=== PATIENT | female | born 1940 | race Caucasian/White ===

== ENCOUNTER → 2016-06-08 | Outpatient (CLI) | payer OTHER, MEDICARE | END | disposition home or self-care (01) | LOC: FIMAGING 15:38 | PROVIDERS: ATTEND Orthopaedic Surgery Sports Medicine | DX: S43.421D Sprain of right rotator cuff capsule, subsequent encounter (principal); X58.XXXD Exposure to other specified factors, subsequent encounter; M75.21 Bicipital tendinitis, right shoulder ==

== ENCOUNTER → 2016-07-05 | Outpatient (CLI) | payer OTHER, MEDICARE | LOC: FIMAGING 13:29 | PROVIDERS: ATTEND Internal Medicine | DX: Z13.820 Encounter for screening for osteoporosis (principal); N95.9 Unspecified menopausal and perimenopausal disorder ==

== ENCOUNTER → 2016-07-18 | Outpatient (CLI) | payer OTHER, MEDICARE | LOC: FIMAGING 13:14 | PROVIDERS: ATTEND Physician Assistant | DX: Z98.1 Arthrodesis status (principal) ==

== ENCOUNTER → 2016-08-16 | Outpatient (CLI) | payer OTHER, MEDICARE | LOC: FIMAGING 16:33 | PROVIDERS: ATTEND Internal Medicine | DX: Z01.818 Encounter for other preprocedural examination (principal) ==

== ENCOUNTER → 2017-04-13 | Outpatient (CLI) | payer OTHER, MEDICARE | LOC: FIMAGING 09:58 | PROVIDERS: ATTEND Internal Medicine | DX: K76.0 Fatty (change of) liver, not elsewhere classified (principal); K42.9 Umbilical hernia without obstruction or gangrene; Z90.49 Acquired absence of other specified parts of digestive tract ==

== ENCOUNTER → 2017-05-21 | Outpatient (CLI) | payer OTHER, MEDICARE | LOC: FIMAGING 08:52 | PROVIDERS: ATTEND Physician Assistant | DX: Z09 Encounter for follow-up examination after completed treatment for conditions other than malignant neoplasm (principal); Z98.1 Arthrodesis status ==

== ENCOUNTER 2017-08-09 15:06 | Inpatient (IN) | payer OTHER, MEDICARE ==
[2017-08-09] MEDS ORDERED: LIDOCAINE 4%/MENTHOL 1% PATCH TD ONE (15:31)
[2017-08-09] MEDS ORDERED: OXYCODONE/APAP 5/325 TAB ONE (16:11)
[2017-08-09] MEDS ORDERED: OXYCODONE/APAP 5/325 TAB PO ONE (16:12)
--- NOTE | 2017-08-09 16:23 | EDPHY ---
H & P Stated Complaint: chronic back pain Time Seen by Provider: 08/09/17 15:13 HPI/ROS: CHIEF COMPLAINT: Acute exacerbation of mild chronic back pain HISTORY OF PRESENT ILLNESS: The patient presents to the ED with a 2-3 ED history of lumbar pain. The patient denies any acute numbness or weakness. She denies any history of fall, trauma or cancer. The patient has remote history of back surgery in 1995. The patient denies any abdominal pain, vomiting or diarrhea. She denies any additional acute medical complaints. The patient reports her pain is worsened with movement and palpation. REVIEW OF SYSTEMS: A comprehensive 10 point review of systems is otherwise negative aside from elements mentioned in the history of present illness. Source: Patient Exam Limitations: No limitations - Personal History Current Tetanus/Diphtheria Vaccine: Unsure Current Tetanus Diphtheria and Acellular Pertussis (TDAP): Unsure Tetanus Vaccine Date: 2006 - Medical/Surgical History Hx Asthma: No Hx Chronic Respiratory Disease: No Hx Diabetes: Yes Hx Cardiac Disease: No Hx Renal Disease: No Hx Cirrhosis: No Hx Alcoholism: No Hx HIV/AIDS: No Hx Splenectomy or Spleen Trauma: No Other PMH: HTN, type II diabetes; hx appy, hysterectomy, meningitis; L foot sx; vineet; - Social History Smoking Status: Former smoker - Physical Exam Exam: General Appearance: Alert, no distress Eyes: Pupils equal and round no pallor or injection ENT, Mouth: Mucous membranes moist Respiratory: There are no retractions, lungs are clear to auscultation Cardiovascular: Regular rate and rhythm Gastrointestinal: Abdomen is soft and nontender, no masses, bowel sounds normal Neurological: 5/5 strength all 4 extremities, sensation intact to light touch, symmetric reflexes Skin: Warm and dry, no rashes Musculoskeletal: Tenderness to palpation along the lumbar paraspinal musculature Extremities: symmetrical, full range of motion Psychiatric: Patient is oriented X 3, there is no agitation Constitutional: Initial Vital Signs Temperature (C) 36.8 C 08/09/17 15:10 Heart Rate 68 08/09/17 15:10 Respiratory Rate 16 08/09/17 15:10 Blood Pressure 152/71 H 08/09/17 15:10 O2 Sat (%) 94 08/09/17 15:10 O2 Delivery Mode Room Air Allergies/Adverse Reactions: Penicillins Allergy (Intermediate, Verified 05/12/15 10:40) Other-Enter Comments Home Medications: Medication Instructions Recorded Calcium Carb W/Vit D [Calcium Carb 500 mg PO BID 04/12/14 W/Vit D 500/200 (*)] Citalopram [CeleXA 20 MG] 20 mg PO DAILY 04/12/14 Hydrochlorothiazide [HCTZ (*)] 12.5 mg PO DAILY 04/12/14 Magnesium Oxide [Magnesium Oxide 200 mg PO DAILY 04/12/14 400 mg (*)] Omeprazole [Prilosec 20 mg] 20 mg PO DAILY 04/12/14 Simvastatin [Zocor 20 mg] 40 mg PO DAILY18 04/12/14 Vitamin B Complex [B Complex] 1 each PO DAILY 04/12/14 glipiZIDE [Glucotrol 5 mg] 10 mg PO BID@,18 04/12/14 metFORMIN HCL [Glucophage 500 mg 250 mg PO BIDMEAL 05/06/15 (*)] HYDROcodone/APAP 10/325 [[place] 1 tab PO Q6 PRN #50 tab 05/20/15 10/325 (*)] Methocarbamol [Robaxin 750 mg (*)] 750 mg PO QID PRN #50 tab 05/20/15 Sennosides/Docusate Sodium 1 tab PO BID #30 tab 05/20/15 [Senokot-S] Lidocaine [Lidoderm] 1 each TP AD PRN #15 adh..patch 08/09/17 oxyCODONE/APAP 5/325 [Percocet 1 - 2 tab PO Q6-8PRN PRN #20 tab 08/09/17 5/325 (RX)] Medical Decision Making - Diagnostics Imaging Results: Imaging Impressions Lumbar Spine X-Ray 08/09/17 15:33 Impression: Progressive degenerative change at the L4-L5 disk space since March 2015. Lumbar Spine MRI 08/09/17 17:04 Impression: 1. Transitional level at S1-S2 as described above. 2. L4-L5: Moderate to severe central canal stenosis and severe left lateral recess stenosis secondary to a new large left paramedian disk herniation, extrusion, migrating cephalad into the left L4 lateral recess and severe bilateral facet arthropathy with degenerative grade 1 anterolisthesis also resulting in moderate to severe bilateral neural foraminal stenosis. 3. Please see above findings at specific disk levels. Findings and recommendations discussed with Emergency Department physician, Jonathon Rojas at 18:29 hour, 08/09/2017. Final report concurs with initial preliminary interpretation. ED Course/Re-evaluation: The patient presents to the ED with low back pain. The patient does have evidence DJD noted on her plain films. The patient was noted to be neurologically intact in the emergency department. Patient received a lidocaine patch and 2 oral Percocet. The patient continued to have a fair amount of pain with radicular symptoms into her left leg. The patient lives alone in has some difficulty getting transportation. Given her ongoing symptoms an MRI of the lumbar spine was ordered which demonstrates a fairly significant disc herniation at L4-L5 undoubtedly contributing to her symptoms. I did consult with her neurosurgeon Dr. Nielsno who recommends admission to the hospital. He will see the patient in consultation tomorrow to discuss possible epidural steroid injection versus operative intervention. Consultation is made with Dr. Montalvo from the hospitalist service who will admit the patient this evening. Differential Diagnosis: Differential diagnosis considered includes disc herniation, cauda equina syndrome, sciatica, myofascial strain - Data Points Medications Given: Miscellaneous Information (Patch Removal) 1 ea TD DAILY21 RADHA Stop: 02/05/18 20:59 Last Admin: 08/09/17 15:36 Dose: 1 ea Discontinued Medications Miscellaneous Medication (Icy Hot Lidocaine/Menthol 4%/1% Patch) 1 patch TD EDNOW ONE Stop: 08/09/17 15:32 Last Admin: 08/09/17 15:36 Dose: 1 patch Oxycodone/Acetaminophen (Percocet 5/325) 2 tab PO EDNOW ONE Stop: 08/09/17 16:13 Last Admin: 08/09/17 16:12 Dose: 2 tab Departure - Departure Disposition: Home, Routine, Self-Care Clinical Impression: Lumbar spine strain Condition: Good Instructions: Musculoskeletal Pain (ED) Additional Instructions: 1. Return to the ED for any worsening weakness, uncontrolled pain, fever or other concerns. 2. Take Ibuprofen or Motrin 600 mg by mouth three times a day. 3. Percocet as needed for severe pain 4. Lidocaine patches as directed Referrals: Audrey Lombardo MD [Primary Care Provider] - As per Instructions Prescriptions: Lidocaine [Lidoderm] 1 each TP AD PRN #15 adh..patch PRN Reason: Pain, Breakthrough oxyCODONE/APAP 5/325 [Percocet 5/325 (RX)] 1 - 2 tab PO Q6-8PRN PRN #20 tab PRN Reason: for pain
[2017-08-09] MEDS ORDERED: HYDROCODONE/APAP 5/325 TAB PO PRN (19:56)
[2017-08-09] MEDS ORDERED: ACETAMINOPHEN 325 MG TAB PO PRN (19:56)
[2017-08-09] MEDS ORDERED: oxyCODONE IR 5 MG TAB PO PRN (19:56)
[2017-08-09] MEDS ORDERED: PROMETHAZINE HCL 25 MG/ML INJ IVP PRN (19:56)
[2017-08-09] MEDS ORDERED: NS 1,000 ML IV SCH (20:00)
[2017-08-09] MEDS ORDERED: PATCH REMOVAL 1 EA PATCH TD SCH (21:00)
[2017-08-09 21:46] LABS: PLATELET COUNT 259 10^3/uL (150-400)
[2017-08-09 22:01] LABS: INR 1.03 (0.83-1.16); PROTIME(PATIENT) 13.7 SEC (12.0-15.0)
--- NOTE | 2017-08-09 22:14 | GHP ---
[f rep st] HISTORY AND PHYSICAL DATE OF ADMISSION: 08/09/2017 CHIEF COMPLAINT: Low back pain. HISTORY OF PRESENT ILLNESS: Ms. Vanessa is a pleasant 77-year-old female, with a past medical his tory of hypertension and diabetes, who presented to the [facility] Emergency Room aft er 2-3 days of severe low back pain. She did there were no obvious triggers of the back pain. She h as not had any recent falls or injuries. In the emergency room, she had MRI of the lumbar spine, whi ch revealed moderate to severe central canal stenosis and severe left lateral recess stenosis at the L4-L5 disk space due to a large left paramedian disk herniation extrusion. The patient had had surge ry before with Dr. Cam Nielson in the past. He was consulted in the emergency room and it was recomme nded to admit her for pain control and discuss further treatment options, potentially surgery versus injection. At the time of my evaluation, the patient appears comfortable without any significant kasey n. PAST MEDICAL HISTORY: 1. Hypertension. 2. Diabetes mellitus type 2. 3. Hyperlipidemia. 4. Anxiety/depression. PAST SURGICAL HISTORY: 1. Appendectomy. 2. Cholecystectomy. 3. Left foot surgery. 4. Cervical spine surgery. MEDICATIONS: 1. Aspirin 81 mg daily. 2. Chlorthalidone 12.5 mg daily. 3. Citalopram 20 mg daily. 4. Glipizide 10 mg twice a day. 5. Metformin 500 mg twice a day. 6. Omeprazole 20 mg daily. 7. Simvastatin 40 mg daily. ALLERGIES: Penicillins. This caused sloughing off of the skin on her fingertips. This happened whe n she was in her 20s. FAMILY HISTORY: Mother and father both of uncertain causes. SOCIAL HISTORY: The patient is . She was previously to a physician. She has two so ns from her marriage, 1 of which from kidney disease. She is a former smoker but has quit now f or at least 25 years. She is originally from [place], [place] out of [place]. She moved to the [facility] after she met her . They lived in [place] for much of the time, but she states she ramesh simmons did not like living in [place] and ultimately they moved to [place], [place], where they had f riends that also lived here. Power of sports attorney will be her remaining live son. CODE STATUS: Reviewed and for now we discussed that we would keep her on a full code status, but she states that she has not really thought about code status much and will discuss with her son and let us know if she wants to change the current code status. REVIEW OF SYSTEMS: CONSTITUTIONAL: No complaints of any fevers or chills. ENT: No recent upper re spiratory illnesses. CARDIOVASCULAR: No complaints of any chest pains, palpitations, or syncopal ep isodes. RESPIRATORY: No complaints of shortness of breath or productive cough. GI: No complaints of any nausea, vomiting, diarrhea, constipation. : No report of any difficulty with urination. N EUROLOGIC: No complaints of any headaches or focal weakness. HEMATOLOGIC: No history of any deep v ein thrombosis or pulmonary embolism. PSYCHIATRIC: Patient is currently on SSRI therapy. ENDOCRINE : No history of polyuria or heat intolerance. SKIN: No new skin rashes. MUSCULOSKELETAL: Other t grossman the low back pain, no focal joint pains. PHYSICAL EXAM: VITAL SIGNS: Temperature 36.8, blood pressure 123/54, heart rate 53, respirations 16 , saturating 94% on room air. APPEARANCE: The patient appears comfortable. She is awake, alert, co nversant. She is hard of hearing and hears best out of her right ear. HEENT: Extraocular movements appear intact. No scleral icterus noted. NECK: No thyroid enlargement appreciated. CHEST: Clear to auscultation. Normal respiratory effort. HEART: Regular rate and rhythm. No murmurs appreciat ed. ABDOMEN: Soft, nontender, nondistended. : No Douglas catheter in place. EXTREMITIES: No sig nificant pitting edema. No calf pain with palpation. NEUROLOGIC: Cranial nerves 2-12 grossly intac t. Had 4/5 strength in both lower extremities, 1+ patellar reflexes bilaterally. 5/5 upper extremit y strength with hand grasp. LABS: No current labs. ASSESSMENT/PLAN: 1. Low back pain, currently appears well controlled as long as she is resting in bed. We will shabnam nue with Tylenol for mild pain, hydrocodone/acetaminophen for moderate pain. I also have ordered for oxycodone as well as IV morphine for more severe pain. 2. L4-L5 herniation. Will await further treatment recommendations from Neurosurgery. I have kept h er n.p.o. after midnight in case of potential surgery tomorrow and have ordered preop labs for the mo rning, as well. 3. Hypertension, appears well controlled. Will continue with current chlorthalidone. 4. Diabetes mellitus type 2, currently on metformin and sulfonylurea. Will treat with sliding scale insulin for now as she will be n.p.o. overnight. 5. Hyperlipidemia. We will hold statin therapy for now. 6. Depression/anxiety. Continue with daily Celexa. 7. Deep venous thrombosis prophylaxis. Will hold starting Lovenox drip at this time until our plan is clear regarding potential surgical intervention. 8. Disposition: I will admit her under observation status. /[id number]/MODL
[2017-08-10 04:57] LABS: PLATELET COUNT 256 10^3/uL (150-400)
[2017-08-10 05:01] LABS: INR 1.04 (0.83-1.16); PROTIME(PATIENT) 13.8 SEC (12.0-15.0)
[2017-08-10] MEDS ORDERED: D50W 25 GM/50 ML SYR IVP PRN (08:58)
--- NOTE | 2017-08-10 09:20 | CPEKG ---
Heart Rate: 60 RR Interval: 1000 P-R Interval: 121 QRSD Interval: 90 QT Interval: 460 QTC Interval: 460 P [place]: 0 QRS [place]: 38 T Wave [place]: 48 EKG Severity - BORDERLINE ECG - EKG Impression: SINUS RHYTHM EKG Impression: LOW VOLTAGE THROUGHOUT Electronically Signed By: Se Broussard 10-Aug-2017 12:55:45
[2017-08-10] MEDS: CHLORTHALIDONE 25 MG TAB PO SCH (09:35)
[2017-08-10] MEDS: CITALOPRAM 20 MG TAB PO SCH (09:35)
[2017-08-10] MEDS ORDERED: fentaNYL 100 MCG/2 ML INJ IVP PRN (09:50)
[2017-08-10] MEDS ORDERED: MEPERIDINE 25 MG/ML SYR IVP PRN (09:50)
[2017-08-10] MEDS ORDERED: NALOXONE HCL 0.4 MG/ML INJ IVP PRN (09:50)
[2017-08-10] MEDS ORDERED: FLUMAZENIL 0.5 MG/5 ML MDV IVP PRN (09:50)
[2017-08-10] MEDS ORDERED: MIDAZOLAM 2 MG/2 ML VIAL IVP PRN (09:50)
[2017-08-10] MEDS ORDERED: NS 1,000 ML IV SCH (10:00)
--- NOTE | 2017-08-10 10:01 | GCON ---
[f rep st] CONSULTATION NEUROSURGICAL CONSULTATION CHIEF COMPLAINT: Low back pain and left posterior leg pain. HISTORY OF PRESENT ILLNESS: The patient is a pleasant 77-year-old female with past medical history significant for diabetes and hypertension. She was admitted to [facility] yesterday after being seen in the emergency room due to severe back pain. The patient states that her back pain became so bad over the last 2-3 days that she could not walk and she needed to call 911. She also does have significant bilateral knee pain and tenderness which limits her mobility, and she complains of today as well, but the back pain is more of an issue here. She states she has 90% back pain and 10% left posterior leg pain. Her left posterior leg pain does not radiate past the knee and is localized to the posterior thigh. MRI of the lumbar spine was performed which demonstrated an L4-5 extruded disk herniation causing moderate to severe central canal stenosis and severe left lateral recess stenosis. She is not having any bowel or bladder incontinence, but reports chronic constipation. She denies any numbness, tingling, or weakness in her legs. PAST MEDICAL HISTORY: Hypertension, diabetes type 2, hyperlipidemia, anxiety and depression. PAST SURGICAL HISTORY: Appendectomy, cholecystectomy, left foot surgery, cervical spine surgery. CURRENT MEDICATIONS: 1. 81 mg aspirin, last dose 2 days ago. 2. Chlorthalidone 12.5 mg daily. 3. Citalopram 20 mg daily. 4. Glipizide 10 mg twice daily. 5. Metformin 500 mg twice daily. 6. Omeprazole 20 mg daily. 7. Simvastatin 40 mg daily. ALLERGIES: Penicillin. FAMILY HISTORY: Mother and father . SOCIAL HISTORY: The patient lives alone with her dog. She has quit smoking 20 years ago. She does not drink alcohol. She has a son who lives in [place]. REVIEW OF SYSTEMS: Negative other than mentioned in the HPI. PHYSICAL EXAM: GENERAL: Pleasant, healthy-appearing 77-year-old female in moderate discomfort with movement. HEAD, EARS, NOSE, THROAT: Within normal limits. EXTREMITIES: Within normal limits. ABDOMEN: Soft, nontender, nondistended. NEUROLOGIC: Patient is awake, alert, oriented x4. Speech is fluent. Tongue is midline. Cranial nerves 2-12 intact to gross examination. Speech is fluent. Tongue is midline. Extraocular movements are intact. She has 5/5 strength in the bilateral upper and lower extremities in all muscle groups with normal sensation in all dermatomal distributions of the bilateral upper and lower extremities. Reflexes are hyporeflexic at the bilateral biceps and brachialis. Patellar tendon reflexes are not checked secondary to severe tenderness of bilateral knees. There is no clonus. DATA REVIEW: MRI of the lumbar spine demonstrates a moderate to severe central canal stenosis and severe left lateral recess stenosis at the L4-5 disk space due to a large left paramedian disk herniation/extrusion. LAB RESULTS: As of 08/10: Her white blood cell count is 6.3, hemoglobin 13, hematocrit 40, platelets are 256. Sodium is 142, potassium 3.8, chloride 104, carbon dioxide 30, BUN 27, creatinine 1.0. INR is 1.04. IMPRESSION: This is a 77-year-old female with severe low back pain and left posterior leg pain likely secondary to left L4-5 disk herniation with free fragment component. The patient has minimal pain when lying in bed, but severe pain with any type of movement. She was also significantly limited with her mobility secondary to her bilateral knee pain. Currently, the patient has no focal neurologic deficits. PLAN: All the above issues were discussed the patient in detail with Dr. Morfin, who was present. At this time, the patient was given the option of an L4-5 intralaminar epidural steroid injection versus an L4-5 microdiskectomy. However, the patient is on 81 mg of aspirin with her last dose being 2 days ago , which would not make her a surgical candidate during this current hospitalization. Dr. Morfin recommend she be off aspirin for at least 10 days prior to any surgical intervention; however, she is a candidate for an L4-5 ILESI as long as Interventional Radiology is willing to perform it. At this time, the patient would like to proceed with the injection. The medicine team will help manage her blood sugar levels during her hospitalization and particularly after any steroid treatment. Once the patient has received her injection, she may follow up with Dr. Nielson (per the patient wishes) as an outpatient. If the patient is unable to undergo an epidural steroid injection secondary to her aspirin, we will manage her symptoms conservatively and follow her up as an outpatient. All above issues discussed with Dr. Morfin and the patient. /[id number]/MODL MTDD
[2017-08-10] MEDS ORDERED: LIDOCAINE 1% 300 MG/30 ML SDV ONE (10:09)
[2017-08-10] MEDS ORDERED: IOPAMIDOL (ISOVUE-M 300) 15 ML VIAL ONE (10:09)
[2017-08-10] MEDS ORDERED: DEXAMETHASONE 10 MG/ML VIAL ONE (10:10)
--- NOTE | 2017-08-10 10:19 | HOSPPROG ---
Hospitalist Progress Note Assessment/Plan: Patient is a 77-year-old female who presented to [facility] after 2-3 days of severe low back pain. She describes being unable to walk or move and called 911. In the emergency room she had an MRI of the lumbar spine which revealed moderate to severe central canal stenosis and severe left lateral recess stenosis at the L4-L5 disc space due to a large left paramedian disc herniation extrusion. I met with the patient today with Javier Green physician assistant shift supervisor with Neurosurgery. Also reviewed the patient's care with Dr. Vielka Morfin with neurosurgery. The plan is for her to get a steroid injection at the L4-L5 level. Will see her response to this. * acute low back pain with radicular symptoms -she has no pain as long she is lying still in the bed and has only required Tylenol -getting a L4-L5 epidural steroid injection this morning * diabetes type 2 -will hold her oral agents and place her on a sliding scale * hyperlipidemia - statin therapy * depression and anxiety -resume Celexa *DVT prophylaxis:holding in the setting of steroid injection Subjective: Justina has no pain unless she moves. Objective: Vital Signs Temp Pulse Resp BP Pulse Ox 36.6 C 57 L 16 129/77 H 91 L 08/10/17 09:52 08/10/17 09:52 08/10/17 09:52 08/10/17 09:52 08/10/17 09:52 Laboratory Results 08/10/17 04:40 08/10/17 04:40 08/09/17 08/10/17 08/11/17 05:59 05:59 05:59 Intake Total 200 Balance 200 PT 13.8 SEC (12.0-15.0) 08/10/17 04:40 INR 1.04 (0.83-1.16) 08/10/17 04:40 - Physical Exam Constitutional: no apparent distress, uncomfortable Eyes: PERRL Ears, Nose, Mouth, Throat: hard of hearing Cardiovascular: regular rate and rhythym Respiratory: no respiratory distress Gastrointestinal: normoactive bowel sounds Skin: warm Musculoskeletal: other (equal foot presses,able to pull toes up) Neurologic: AAOx3 Psychiatric: interacting appropriately, anxious ICD10 Worksheet Patient Problems: Problems Problem Status Onset Lumbar spine strain Acute Arthrodesis status Acute Cervical spinal stenosis Acute Chest pain Acute
--- NOTE | 2017-08-10 10:25 | PDPROPOC ---
Sedation Plan of Care Sedation Plan of Care: vital signs stable, mental status noted, patient educated of risks, benefits, alternatives, patient can tolerate sedation ASA Classification: ASA 2 Planned drugs: fentanyl, midazolam Mallampati Score: Class 2 Mallampati Reference Image:
--- NOTE | 2017-08-10 10:26 | PDGENHP ---
History & Physical Chief Complaint: severe pain yesterday, now 0-4/10 History of Present Illness: L4/5 disc extrusion. Relevant Physical Exam: intact senation and motor Cardiorespiratory Assessment: rrr, nl wob
--- NOTE | 2017-08-10 10:45 | PDRADPN ---
Radiology Procedure Note Date of Procedure: 08/10/17 Radiologist: Albert Schumacher Anesthesia: IV Sedation Pre-op Diagnosis: L4/5 disc extrusion Post-op Diagnosis: same Indication: pain Procedure: paddy Finding(s): normal epidurogram noted prior to injection of 8mg dexamethasone in 2mL preservative free lidocaine. Inf/Abcess present in the surg proc area at time of surgery?: No EBL: none Complications: none
[2017-08-10] MEDS: INSULIN LISPRO 100 UNIT/ML SC SCH ×2 (12:09→18:33)
--- NOTE | 2017-08-10 14:18 | ASMTCMCOM ---
CM Note CM Note Notes: CM met with Pt. Pt has recommended home care. Pt has agreed that she is "home bound" . Pt has had [facility] in the past; she has consented to CM making a referral. A referral was made to [facility]. Pt's expected D/C is tomorrow. D/C Plan: Pt to receive PT at home through [facility]. Date Signed: 08/10/2017 02:17 PM Electronically Signed By:Yeys Recio
--- NOTE | 2017-08-10 14:48 | PDMN ---
Medical Necessity Medical necessity: change to IP; los>2mn for acute low back pain with radicular symptoms, s/p ASHLEY with sedation; requires continued monitoring and evaluation of mobility prior to discharge; lives alone; comorbid DM, HLD, anxiety and depression; per order and progress note 08/10/17
[2017-08-10] MEDS ORDERED: MAGNESIUM HYDROXIDE 30 ML UDCUP PO PRN (17:50)
[2017-08-10] MEDS ORDERED: POLYETHYLENE GLYCOL 3350 17 GM PKT PO PRN (17:50)
[2017-08-10] MEDS ORDERED: BISACODYL 10 MG SUPP PR PRN (17:50)
[2017-08-10] MEDS ORDERED: LACTULOSE 20 GM/30 ML UDCUP PO PRN (17:50)
[2017-08-10] MEDS ORDERED: SIMVASTATIN 40 MG PO SCH (18:00)
[2017-08-10] MEDS ORDERED: ATORVASTATIN CALCIUM 20 MG TAB PO SCH (18:00)
[2017-08-10] MEDS: SENNOSIDES/DOCUSATE SODIUM TAB PO SCH (21:03)
--- NOTE | 2017-08-11 06:11 | NEUSURGPN ---
Assessment/Plan: 77y/o male with L4/5 disc herniation s/p L4/5 ASHLEY with IR yesterday -Optimize pain management -PT/OT -Discussed injections, adn how can take 1-2 weeks to reach full benefit -Okay to dispo per medicine -Follow up with Dr. Nielson in 3-4 weeks -Please notify NS with any change in neuro/motor exam Subjective: Denies any new pain or weakness Objective: NAD A&Ox3 MAEx4 5/5 and equal in BUE and BLE. Sensation intact Neurosurgery Physical Exam - Vitals, I&O, Labs I and O 08/10/17 08/11/17 08/12/17 05:59 05:59 05:59 Intake Total 200 500 Balance 200 500 Weight 91 kg Intake: Oral (ml) 200 300 IV Intake (ml) 200 Other: Intake Quantity Yes Yes Sufficient Number of Voids Toilet 1 1 Vital Signs Temp Pulse Resp BP Pulse Ox 36.8 C 57 L 18 134/62 H 91 L 08/11/17 04:00 08/11/17 04:00 08/11/17 04:00 08/11/17 04:00 08/11/17 04:00 Laboratory Results 08/10/17 04:40 08/10/17 04:40 ICD10 Worksheet Patient Problems: Problems Problem Status Onset Lumbar spine strain Acute Arthrodesis status Acute Cervical spinal stenosis Acute Chest pain Acute
[2017-08-11 07:39] VITALS: BP 118/74
[2017-08-11] MEDS: CHLORTHALIDONE 25 MG TAB PO SCH (08:15)
[2017-08-11] MEDS: SENNOSIDES/DOCUSATE SODIUM TAB PO SCH (08:15)
[2017-08-11] MEDS: CITALOPRAM 20 MG TAB PO SCH (08:17)
[2017-08-11] MEDS: INSULIN LISPRO 100 UNIT/ML SC SCH (08:17)
--- NOTE | 2017-08-11 10:57 | PDIAF ---
- Diagnosis Diagnosis: back pain Code Status: Full Code - Medication Management Discharge Medications: Medications to Continue on Transfer Citalopram [CeleXA 20 MG] 20 mg PO DAILY 04/12/14 [Last Taken 08/09/17] Omeprazole [Prilosec 20 mg] 20 mg PO DAILY 04/12/14 [Last Taken 08/09/17] Simvastatin [Zocor 20 mg] 40 mg PO DAILY18 04/12/14 [Last Taken 08/08/17] Vitamin B Complex [B Complex] 1 each PO DAILY 04/12/14 [Last Taken 1 Week Ago ~ 05/12/15] glipiZIDE [Glucotrol 5 mg] 10 mg PO BID@04/12/14 [Last Taken 08/09/17 08: 00] metFORMIN HCL [Glucophage 500 mg (*)] 500 mg PO BIDMEAL 05/06/15 [Last Taken 08:00] Calcium Carb W/Vit D [Calcium Carb W/Vit D 500/200 (*)] 500 mg PO HS 08/09/17 [ Last Taken 08/08/17] Chlorthalidone [Chlorthalidone 25 mg (*)] 12.5 mg PO DAILY 08/09/17 [Last Taken 08/09/17] Herbals/Supplements -Info Only 1 ea PO DAILY 08/09/17 [Last Taken Unknown] Lidocaine [Lidoderm] 1 each TP AD PRN #15 adh..patch 08/09/17 [Last Taken Unknown] oxyCODONE/APAP 5/325 [Percocet 5/325 (RX)] 1 - 2 tab PO Q6-8PRN PRN #20 tab [Last Taken Unknown] Acetaminophen [Tylenol 325mg (*)] 650 mg PO Q4HRS PRN tab 08/11/17 [Last Taken Unknown] Discharge Medications: Refer to the Discharge Home Medication list for PRN reason. PICC Care - Routine: N/A - Orders Services needed: Home Care, Physical Therapy Home Care Face to Face: I certify that this patient was under my care and that I had the required [id number] encounter meeting the encounter requirements on the discharge day. My findings support the fact that the patient is homebound as defined in Home Care Face to Face Continued: CMS Chapter 7 Medicare Benefits Manual 30.1.1 , The condition of the patient is such that there exists a normal inability to leave home and consequently, leaving home would require a considerable and taxing effort. Diet Recommendation: no restrictions on diet Additional Instructions: 1. Return to the ED for any worsening weakness, uncontrolled pain, fever or other concerns. 2. Take Ibuprofen or Motrin 600 mg by mouth three times a day. 3. Percocet as needed for severe pain 4. Lidocaine patches as directed - Follow Up Care Current Providers and Referrals: Audrey Lombardo MD [Primary Care Provider] - As per Instructions
--- NOTE | 2017-08-11 12:26 | GDS ---
[f rep st] DISCHARGE SUMMARY DISCHARGE DIAGNOSES: 1. L4-5 disc herniation. 2. Back pain. 3. Diabetes mellitus type 2. 4. Hyperlipidemia. STUDIES AND PROCEDURES DONE: Epidural steroid injection. CONSULTATION: Neurosurgery. PHYSICAL EXAM: GENERAL: The patient is alert. VITAL SIGNS: Afebrile at 36.8, pulse is 59, respirato ry rate 16, blood pressure is 118/74, she is saturating 94% on room air. I have seen and evaluated th e patient on the day of discharge. HOSPITAL COURSE: The patient is a 77-year-old female who presented to the hospital with complaints o f severe back pain. She was evaluated and diagnosed with. 1. Acute low back pain with radicular symptoms. The patient did receive evaluation and was noted to have a L4-5 disc herniation per MRI. During this hospital course she received a steroid injection. Her back pain has resolved. She is feeling significantly better. She has been evaluated by Physica l Therapy as well as Occupational Therapy and has been felt safe to be discharged home with home phys ical therapy. A four-wheel walker has been prescribed for the patient at the time of disposition. 2. History of diabetes type 2. Her medications have been continued. 3. History of hyperlipidemia. Her statin therapy has been continued. DISPOSITION: The patient will be discharged home with home physical therapy and her . There are no pending studies. DISCHARGE MEDICATIONS: Please refer to EMR form. I have not provided the patient with any prescripti ons at the time of disposition. Followup will be with her primary care physician, Dr. Lombardo. I spent greater than 35 minutes in the care, coordination, and management of the patient's dispositio n. /[id number]/MODL
== END 2017-08-11 12:12 | disposition home health service (06) | DRG 552 ==
LOC: EDUNIT# → INTOOBSV 18:50 → UNDOADMOB 18:50 → INTOOBSV 19:23 → OBSVTOIN 19:23 → F3N 19:48 → OBSVTOIN 08-10 14:35 → F3N 08-10 14:35 → UNDODISIN 08-11 12:12
PROVIDERS: ADMIT Internal Medicine; ATTEND Internal Medicine
PROC: 3E0S33Z Introduction of Anti-inflammatory into Epidural Space, Percutaneous Approach (ICD-10-PCS; principal; 2017-08-10 10:00)
DX: M51.26 Other intervertebral disc displacement, lumbar region (principal); I10 Essential (primary) hypertension; E11.9 Type 2 diabetes mellitus without complications; E78.5 Hyperlipidemia, unspecified; F41.8 Other specified anxiety disorders; Z87.891 Personal history of nicotine dependence
CPT/HCPCS: 97116-GP; 97161-GP; 97166-GO; 97535-GO; G0378; G8978-GP-CK; G8979-GP-CJ; G8987-GO-CJ; G8988-GO-CI; G8989-GO-CI; J1100; J1815; J2250; J3010; Q9967

== ENCOUNTER 2017-08-22 08:26 | Observation (INO) | payer OTHER, MEDICARE ==
--- NOTE | 2017-08-22 08:34 | PDHPUP ---
History & Physical Update H&P update statement: This history and physical update is based on an assessment of the patient which was completed after admission or registration (within 24 hours), but prior to the surgery/procedure. H&P update: H&P reviewed & patient examined, no change in patient's condition since H&P completed
[2017-08-22] MEDS ORDERED: GABAPENTIN 300 MG CAP PO ONE (08:36)
[2017-08-22] MEDS ORDERED: ACETAMINOPHEN 500 MG TAB PO ONE (08:36)
[2017-08-22] MEDS ORDERED: ceFAZolin 2 GM/DEXTROSE 100 ML IV ONE (08:36)
[2017-08-22] MEDS ORDERED: LR 1,000 ML IV ONE (08:37)
[2017-08-22] MEDS ORDERED: LIDOCAINE 1% 2 ML INJ ID PRN (08:37)
[2017-08-22] MEDS ORDERED: BUPIVACAINE 0.25% 30 ML SDV ONE (08:39)
[2017-08-22] MEDS ORDERED: THROMBIN (BOVINE) 5,000 UNIT VIAL TP ONE (08:39)
[2017-08-22] MEDS ORDERED: DEPO METHYLPREDNISOLONE 40 MG/ML SDV ONE (08:39)
[2017-08-22] MEDS ORDERED: CHLORHEXIDINE GLUC HIBICLENS 118 ML BTL TP ONE (08:39)
[2017-08-22] MEDS ORDERED: BACITRACIN 50,000 UNITS/10 ML SYR IRR ONE (08:40)
[2017-08-22] MEDS ORDERED: EPINEPHrine 1 MG/ML INJ ONE (08:40)
[2017-08-22] MEDS ORDERED: VANCOMYCIN HCL/NORMAL SALINE 250 ML IV ONE (08:59)
--- NOTE | 2017-08-22 09:51 | PDANEPAE ---
ANE History of Present Illness 77 year with lumbar HNP ANE Past Medical History - Cardiovascular History Hx Hypertension: Yes Hx Arrhythmias: No Hx Chest Pain: No Hx Coronary Artery / Peripheral Vascular Disease: No Hx CHF / Valvular Disease: No Hx Palpitations: No Cardiovascular History Comment: HYPERCHOLESTEREMIA. HX DVT RLE 2013 - Pulmonary History Hx COPD: Yes Hx Asthma/Reactive Airway Disease: No Hx Recent Upper Respiratory Infection: No Hx Oxygen in Use at Home: No Hx Sleep Apnea: No Sleep Apnea Screening Result - Last Documented: Negative Pulmonary History Comment: INH - Neurologic History Hx Cerebrovascular Accident: No Hx Seizures: No Hx Dementia: No - Endocrine History Hx Diabetes: Yes Endocrine History Comment: DM II - Renal History Hx Renal Disorders: No - Liver History Hx Hepatic Disorders: No - Neurological & Psychiatric Hx Hx Neurological and Psychiatric Disorders: No Neurological / Psychiatric History Comment: HX DEPRESSION - Cancer History Hx Cancer: No - Congenital Disorder History Hx Congenital Disorders: No - GI History Hx Gastrointestinal Disorders: No Gastrointestinal History Comment: GERD - Other Health History Other Health History: L EAR HEARING LOSS. HX MENINGITIS 1998. OA. CERVICAL PAIN, CERVICAL STENOSIS. R ARM PAIN - Chronic Pain History Chronic Pain: Yes - Surgical History Prior Surgeries: cervical discetomy 2013. L FOOT SURGERY. HYSTERECTOMY. CHOLECYSTECTOMY. APPENDECTOMY. R & L CARPAL TUNNEL ANE Review of Systems Review of systems is: negative Review of Systems: ANE Patient History - Allergies Allergies/Adverse Reactions: Penicillins Allergy (Intermediate, Verified 05/12/15 10:40) Other-Enter Comments - Home Medications Home medications: home medication list seen and reviewed Home Medications: Omeprazole [Prilosec 20 mg] 20 mg PO DAILY 04/12/14 [Last Taken 08/21/17 09:30] Simvastatin [Zocor 20 mg] 40 mg PO DAILY18 04/12/14 [Last Taken 08/20/17 18:00] Vitamin B Complex [B Complex] 1 each PO DAILY 04/12/14 [Last Taken 08/20/17] glipiZIDE [Glucotrol 5 mg] 10 mg PO BID@04/12/14 [Last Taken 08/21/17 09: 30] metFORMIN HCL [Glucophage 500 mg (*)] 500 mg PO BIDMEAL 05/06/15 [Last Taken 02/26 09:30] Calcium Carb W/Vit D [Calcium Carb W/Vit D 500/200 (*)] 500 mg PO HS 08/09/17 [ Last Taken 08/20/17] Chlorthalidone [Chlorthalidone 25 mg (*)] 12.5 mg PO DAILY 08/09/17 [Last Taken 08/21/17 09:30] Herbals/Supplements -Info Only 1 ea PO DAILY 08/09/17 [Last Taken 08/20/17] Aspirin 81mg (*) 08/22/17 [Last Taken 08/16/17] - NPO status NPO Status: no food or drink >8 hours NPO Since - Liquids (Date): 08/21/17 NPO Since - Liquids (Time): 20:00 NPO Since - Solids (Date): 08/21/17 NPO Since - Solids (Time): 18:30 - Anes Hx Anes Hx: no prior problems - Smoking Hx Smoking Status: Former smoker - Alcohol Use Alcohol Use: None ANE Labs/Vital Signs - Vital Signs Blood Pressure: 120/58 Heart Rate: 53 Respiratory Rate: 16 O2 Sat (%): 95 Height: 167.64 cm Weight: 91 kg ANE Physical Exam - Airway Neck exam: FROM Mallampati Score: Class 2 Mouth exam: normal dental/mouth exam - Pulmonary Pulmonary: no respiratory distress - Cardiovascular Cardiovascular: regular rate and rhythym - ASA Status ASA Status: II ANE Anesthesia Plan Anesthesia Plan: general endotracheal anesthesia
[2017-08-22] MEDS ORDERED: fentaNYL 100 MCG/2 ML INJ ONE (10:14)
[2017-08-22] MEDS ORDERED: REMIFENTANIL HCL 1 MG VIAL ONE (10:14)
[2017-08-22] MEDS ORDERED: PROPOFOL 200 MG/20 ML VIAL ONE (10:15)
[2017-08-22] MEDS ORDERED: KETAMINE 500 MG/10 ML VIAL ONE (10:15)
[2017-08-22] MEDS ORDERED: PROPOFOL/EMULSION 500 MG/50 ML BOTTLE IV ONE (10:15)
[2017-08-22] MEDS ORDERED: POLYETHYLENE GLYCOL 3350 17 GM PKT PO PRN (10:44)
[2017-08-22] MEDS ORDERED: LACTULOSE 20 GM/30 ML UDCUP PO PRN (10:44)
[2017-08-22] MEDS ORDERED: ONDANSETRON DISINTEGRATING 4 MG TAB PO PRN (10:44)
[2017-08-22] MEDS ORDERED: oxyCODONE IR 5 MG TAB PO PRN (10:44)
[2017-08-22] MEDS ORDERED: METHOCARBAMOL 750 MG TAB PO PRN (10:44)
[2017-08-22] MEDS ORDERED: ONDANSETRON 4 MG/2 ML VIAL IVP PRN ×2 (10:44→12:40)
[2017-08-22] MEDS ORDERED: diphenhydrAMINE 25 MG CAP PO PRN (10:44)
[2017-08-22] MEDS ORDERED: BISACODYL 10 MG SUPP PR PRN (10:44)
[2017-08-22] MEDS ORDERED: MAGNESIUM HYDROXIDE 30 ML UDCUP PO PRN (10:44)
[2017-08-22] MEDS ORDERED: NALOXONE HCL 0.4 MG/ML INJ IVP PRN (12:40)
[2017-08-22] MEDS ORDERED: fentaNYL 100 MCG/2 ML INJ IVP PRN (12:40)
[2017-08-22] MEDS ORDERED: PROMETHAZINE HCL 25 MG/ML INJ IVP PRN (12:40)
--- NOTE | 2017-08-22 12:42 | POSTANESTH ---
Post Anesthetic Evaluation Cardiovascular Status: Normal, Stable Respiratory Status: Normal, Stable Level of Consciousness/Mental Status: Can Participate in Eval, Mildly Sleepy, Arousable Pain Control: Adequate, Prn Tx Ordered Nausea/Vomiting Control: Adequate, Prn Tx Ordered Complications Possibly Related to Anesthesia: None Noted
--- NOTE | 2017-08-22 12:45 | POSTOPPROG ---
Post Op Note Date of Operation: 08/22/17 Surgeon: Enma Nielson Gun Perforator: Megan Greenwood NP Anesthesiologist: Warm Anesthesia: GET(General Endotracheal) Pre-op Diagnosis: L4-5 HNP Procedure: Left L4-5 MOY Inf/Abcess present in the surg proc area at time of surgery?: No Depth: Deep Incisional (Fascial) EBL: 50-100 Total fluids administered: see anesthesia Complications: none Date of Surgery: 08/22/17 Post Op Day: 0 Assessment/Plan: Assessment: 77 yr old F s/p left L4-5 MOY Plan: -Admit for obs-probable discharge later today if pain controlled -PT/OT -Advance diet as tolerated -No bending or twisting or lifting greater than 10 pounds Call neurosurgery with questions/concerns Subjective: Waking up in PACU Objective: Waking up in PACU MARTELL x4 5/5 BLE Sensation intact to light touch BLE Dressing CDI Appropriate Neuro Check Frequency Ordered: Yes
--- NOTE | 2017-08-22 13:36 | GOP ---
[f rep st] OPERATIVE REPORT DATE OF OPERATION: 08/22/2017 SURGEON: Lorenza Nielson MD NEUROSURGEON: Lorenza Nielson MD. CUP TRIMMING MACHINE OPERATOR: Megan Greenwood NP PREOPERATIVE DIAGNOSIS: Herniated disk, L4-5, on the left. POSTOPERATIVE DIAGNOSIS: Herniated disk, L4-5, on the left. PROCEDURE PERFORMED: Left L4-5 hemilaminotomy, medial facetectomy with a left microdiskectomy. FINDINGS: ESTIMATED BLOOD LOSS: 10 cc. INDICATIONS: The patient is a 77-year-old with a number of orthopedic issues including a prior cervi raphael spine surgery as well as a shoulder surgery who presented with terrible radiating pain down the l eft leg. She also had some right-sided pain, but the most excruciating pain was on the left. An MRI demonstrated a large rostral disk extrusion at L4-5 compressing the exiting L4 nerve root as well as causing some mass effect on the traversing L5 root. I suggested a microdiskectomy. She tried an ep idural steroid injection without lasting relief, and she did want to proceed with surgery. She was m iserable. The risks of continued symptoms, recurrent disk herniation, nerve injury, and spinal fluid leak were discussed. She understood those risks, and she did want to proceed. DESCRIPTION OF PROCEDURE: Patient was taken to the operating room, placed in a supine position. Gen eral anesthesia was begun. She was flipped prone onto the Dwain frame. Care was taken to pad all p oints of contact. Her right arm was tucked at her side so as to avoid disrupting the right shoulder, which was quite stiff. The left arm was elevated in the usual fashion. She was sterilely prepped a nd draped. A localizing x-ray was taken. We made an 18 mm incision above the L4-5 interspace. The subcutaneous tissue was dissected with Bovie cautery down to the fascia, and a subperiosteal dissecti on was made on the left L4-5 lamina. Self-retaining retractor was placed. We drilled a left L4-5 la minotomy, medial facetectomy, opened ligamentum flavum, and decompressed the left L5 nerve root, and decompressed all the way rostrally until we saw the L4 nerve root. We now saw the axilla of the L4 r oot and we took a ball-tip probe and swept underneath the L4 root and the thecal sac and delivered a large free fragment. Then we continued sweeping and working in this manner and got another couple of very large free fragm ent disks out. There was a bulge of the L4-5 disk, but now there was no compression of L5 or the exi ting L4 root. We were able to sweep centrally behind the L4 vertebral body. There was no evidence o f any additional compressive lesion. We irrigated with antibiotic saline solution, placed a Gelfoam with Depo-Medrol on it over the left L4-5 laminotomy. We removed our retractor and closed the incisi on in multiple layers using Vicryl sutures. Steri-Strips were applied to the skin. The patient was reversed from anesthesia, extubated, and transferred to recovery room in stable condition. There wer e no complications. COMPLICATIONS: None. /[id number]/MODL
[2017-08-22] MEDS ORDERED: ACETAMINOPHEN 500 MG TAB PO SCH (14:00)
[2017-08-22] MEDS ORDERED: GABAPENTIN 300 MG CAP PO SCH (14:00)
[2017-08-22 16:55] VITALS: BP 110/55
[2017-08-22] MEDS ORDERED: FAMOTIDINE 20 MG TAB PO SCH (21:00)
[2017-08-22] MEDS ORDERED: SENNOSIDES/DOCUSATE SODIUM TAB PO SCH (21:00)
== END 2017-08-22 17:31 | disposition home or self-care (01) ==
LOC: FSGY 08:26 → F3E 10:44 → F3N 13:54
PROVIDERS: ADMIT Neurological Surgery; ATTEND Neurological Surgery
PROC: 0SB20ZZ Excision of Lumbar Vertebral Disc, Open Approach (ICD-10-PCS; principal; 2017-08-22 10:30)
DX: M51.16 Intervertebral disc disorders with radiculopathy, lumbar region (principal); M48.07 Spinal stenosis, lumbosacral region; E78.00 Pure hypercholesterolemia, unspecified
CPT/HCPCS: 63030; 76001; J0171; J1030; J2704; J3010; J3370

== ENCOUNTER → 2018-05-21 | Outpatient (CLI) | payer OTHER, MEDICARE | LOC: FIMAGING 11:25 | PROVIDERS: ATTEND Physician Assistant | DX: M25.78 Osteophyte, vertebrae (principal); M47.892 Other spondylosis, cervical region; Z98.1 Arthrodesis status ==

== ENCOUNTER 2018-06-08 10:46 | Emergency (ER) | payer OTHER, MEDICARE ==
[2018-06-08] MEDS ORDERED: ACETAMINOPHEN 500 MG TAB PO ONE (11:16)
--- NOTE | 2018-06-08 12:22 | EDPHY ---
H & P Stated Complaint: [facility] fall Time Seen by Provider: 06/08/18 10:58 HPI/ROS: CHIEF COMPLAINT: Fall HISTORY OF PRESENT ILLNESS: 78-year-old female states she stumbled on a piece of concrete in a parking lot this morning while walking her dog. Fell forward striking her hands and face. No clear loss of consciousness. Complaining of neck pain, abrasions to the face, pain in her right wrist and left humerus. Denies preceding syncope, chest pain, nausea, vomiting, diarrhea, palpitations. On no blood thinners except for aspirin which she states she quit last week. Denies a headache. Presented via EMS. REVIEW OF SYSTEMS: A comprehensive 10 system review of systems was reviewed and is otherwise negative aside from elements mentioned in the history of present illness and medical decision making. PAST MEDICAL HISTORY: Chronic back pain, diabetes mellitus type 2, bilateral shoulder surgeries, hypertension SOCIAL HISTORY: Nonsmoker. Quite tearful and anxious on initial arrival VITAL SIGNS: Reviewed by me; see NN. GENERAL: Well-developed, well-nourished, in no acute respiratory distress. Patient is somewhat tearful. HEENT: Head: Atraumatic, normocephalic. Face: Abrasion across the nasal bridge, the upper lip, and chin PERRL, EOMI, no nystagmus. Oropharynx: No trauma, normal occlusion. Neck: Diffuse tenderness to palpation. CHEST: Nontender, no subcutaneous air palpable. LUNGS: Clear to auscultation bilaterally, breath sounds are equal. CARDIAC: Regular rate and rhythm, no rubs, murmurs or gallops. ABDOMEN: Soft, nontender, nondistended, bowel sounds normal. BACK: No CVA tenderness, no spinal tenderness. EXTREMITIES: Splint on the right upper extremity. This was removed. The patient has an palmar abrasion at the base of her 3rd digit on the right hand as well as a abrasion at the distal tip of the finger. Tenderness across the right wrist but no obvious deformity. Tenderness to palpation over the left humerus. PULSES: 2+ and equal throughout. NEURO: Alert and oriented x3, cranial nerves are intact throughout, normal motor , normal sensation. SKIN: Warm and dry, no rash. - Personal History Current Tetanus Diphtheria and Acellular Pertussis (TDAP): Yes - Medical/Surgical History Hx Asthma: No Hx Chronic Respiratory Disease: No Hx Diabetes: Yes Hx Cardiac Disease: No Hx Renal Disease: No Hx Cirrhosis: No Hx Alcoholism: No Hx HIV/AIDS: No Hx Splenectomy or Spleen Trauma: No Other PMH: back surgeries, chronic back pain DMII, HTN, B shoulder surgeries - Social History Smoking Status: Former smoker Constitutional: Initial Vital Signs Temperature (C) 37 C 06/08/18 10:46 Heart Rate 67 06/08/18 10:46 Respiratory Rate 16 06/08/18 10:46 Blood Pressure 165/79 H 06/08/18 10:46 O2 Sat (%) 95 06/08/18 10:46 O2 Delivery Mode Room Air Allergies/Adverse Reactions: Penicillins Allergy (Verified 06/08/18 11:24) Medical Decision Making - Diagnostics Imaging Results: Imaging Impressions Head CT 06/08/18 11:15 Impression: 1. Elderly brain with atrophy and probable white matter small vessel disease. 2. Negative for intracranial hemorrhage. CT Cervical Spine Without Contrast History: Trauma. Technique: Multislice helical CT through the cervical spine without contrast from the skull base to T1. Soft tissue and bone evaluation is performed. Sagittal and coronal reconstructions are obtained and reviewed. Dose reduction techniques were utilized. Findings: There is straightening of the cervical curvature and postoperative changes of anterior cervical fusion with diskectomy extend from C5 to C7. Disk space loss is noted at C3-C4, C4-C5 and at C7-T1. No fracture is identified. Prevertebral soft tissues appear normal. Impression: 1. Cervical spine negative for fracture. 2. Postoperative and degenerative changes are seen. Results called and discussed with Karolina Suggs MD on 06/08/2018 at 12:34. Hand X-Ray 06/08/18 11:16 Impression: Left humerus negative for fracture. Right Wrist 4 Views including a Navicular View. Clinical Indications: Pain following trauma. Findings: A fracture or other acute osseous abnormality is not identified. The bone alignment is normal. Osseous demineralization and degenerative changes are seen. Impression: Negative for fracture. Right Hand Clinical Indications: Pain following trauma. Findings: There is no fracture or dislocation. Osseous demineralization is noted. Degenerative arthritic changes are seen involving the interphalangeal joints of the digits of the right hand. No radiopaque foreign body is seen. Impression: Negative for fracture with degenerative changes noted. Humerus X-Ray 06/08/18 11:16 Impression: Left humerus negative for fracture. Right Wrist 4 Views including a Navicular View. Clinical Indications: Pain following trauma. Findings: A fracture or other acute osseous abnormality is not identified. The bone alignment is normal. Osseous demineralization and degenerative changes are seen. Impression: Negative for fracture. Right Hand Clinical Indications: Pain following trauma. Findings: There is no fracture or dislocation. Osseous demineralization is noted. Degenerative arthritic changes are seen involving the interphalangeal joints of the digits of the right hand. No radiopaque foreign body is seen. Impression: Negative for fracture with degenerative changes noted. Wrist X-Ray 06/08/18 11:16 Impression: Left humerus negative for fracture. Right Wrist 4 Views including a Navicular View. Clinical Indications: Pain following trauma. Findings: A fracture or other acute osseous abnormality is not identified. The bone alignment is normal. Osseous demineralization and degenerative changes are seen. Impression: Negative for fracture. Right Hand Clinical Indications: Pain following trauma. Findings: There is no fracture or dislocation. Osseous demineralization is noted. Degenerative arthritic changes are seen involving the interphalangeal joints of the digits of the right hand. No radiopaque foreign body is seen. Impression: Negative for fracture with degenerative changes noted. Cervical Spine CT 06/08/18 11:43 Impression: 1. Elderly brain with atrophy and probable white matter small vessel disease. 2. Negative for intracranial hemorrhage. CT Cervical Spine Without Contrast History: Trauma. Technique: Multislice helical CT through the cervical spine without contrast from the skull base to T1. Soft tissue and bone evaluation is performed. Sagittal and coronal reconstructions are obtained and reviewed. Dose reduction techniques were utilized. Findings: There is straightening of the cervical curvature and postoperative changes of anterior cervical fusion with diskectomy extend from C5 to C7. Disk space loss is noted at C3-C4, C4-C5 and at C7-T1. No fracture is identified. Prevertebral soft tissues appear normal. Impression: 1. Cervical spine negative for fracture. 2. Postoperative and degenerative changes are seen. Results called and discussed with Karolina Suggs MD on 06/08/2018 at 12:34. ED Course/Re-evaluation: 78-year-old female presents emergency department following a mechanical trip and fall. She overall looks well although she is somewhat tearful. He has patient states and hand. CT scan of the head and cervical spine negative for any acute intracranial abnormalities or acute fractures. No fracture of the right hand or right wrist or left humerus. Patient had initially complained of pain to her knees with no abrasions visualized. She was up and ambulatory in the emergency department with no assistance using her walker. Her family has arrived. They state that when she was out today she did not have her walker with her. Patient has been cleared to be discharged home with instructions regarding abrasions, contusions, and instructed to use her walker. Differential Diagnosis: Differential diagnosis of this patient's fall was considered including but not limited to intracranial injury, long bone and pelvic bone fracture, spinal injury, intrathoracic injury, extremity injury, intra-abdominal injury, lacerations, abrasions, and contusions. - Data Points Medications Given: Discontinued Medications Acetaminophen (Tylenol) 1,000 mg PO EDNOW ONE Stop: 06/08/18 11:17 Last Admin: 06/08/18 11:29 Dose: 1,000 mg Departure - Departure Disposition: Home, Routine, Self-Care Clinical Impression: Facial abrasion, Hand contusion, Right wrist sprain Condition: Good Instructions: Contusion in Adults (ED), Abrasion (ED) Additional Instructions: Please take ibuprofen or Tylenol as needed for your pain. Apply ice to the areas which are the most sore, such as your right wrist and your neck. Please follow up with primary care physician if you're not improving as expected. Referrals: Grace Reyna MD [Primary Care Provider] - As per Instructions
[2018-06-08 13:08] VITALS: BP 117/63
== END 2018-06-08 13:07 | disposition home or self-care (01) ==
LOC: MERGE 10:46 → EDBD 10:46
DX: S63.501A Unspecified sprain of right wrist, initial encounter (principal); S00.81XA Abrasion of other part of head, initial encounter; S60.221A Contusion of right hand, initial encounter; I10 Essential (primary) hypertension; E11.9 Type 2 diabetes mellitus without complications; M54.5 Low back pain; G89.29 Other chronic pain; W01.198A Fall on same level from slipping, tripping and stumbling with subsequent striking against other object, initial encounter; Y92.481 Parking lot as the place of occurrence of the external cause; Y93.K1 Activity, walking an animal; Y99.9 Unspecified external cause status

== ENCOUNTER → 2018-07-26 | Outpatient (CLI) | payer OTHER, MEDICARE | LOC: FIMAGING 12:42 | PROVIDERS: ATTEND Internal Medicine | DX: M54.5 Low back pain (principal); M79.632 Pain in left forearm ==

== ENCOUNTER 2018-08-21 07:53 | Inpatient (IN) | payer OTHER, MEDICARE | END 2018-08-23 13:34 | disposition home health service (06) | LOC: F3E 10:29 ==